=== PATIENT | female | born 1970 | race Hispanic/Latino ===

== ENCOUNTER 2020-01-31 17:09 | Emergency (ER) | payer SELFPAY ==
[~2020-01-31] VITALS: Ht 137.2 cm; Wt 85.3 kg
[2020-01-31] MEDS ORDERED: LIDOCAINE 1% W/EPINEPHRINE 20 ML VIAL INJ ONE (18:15)
[2020-01-31] MEDS ORDERED: LIDOCAINE 2%/ EPINEPHRINE 20ML MDV INJ ONE (18:15)
[2020-01-31 19:21] VITALS: BP 142/78
== END 2020-01-31 19:24 | disposition home or self-care (01) ==
LOC: ER 17:09
DX: L02.414 Cutaneous abscess of left upper limb (principal); L02.412 Cutaneous abscess of left axilla; E11.9 Type 2 diabetes mellitus without complications
CPT/HCPCS: 99283

== ENCOUNTER 2020-02-29 09:17 | Emergency (ER) | payer SELFPAY ==
[~2020-02-29] VITALS: Ht 137.2 cm; Wt 85.3 kg
--- NOTE | 2020-02-29 09:37 | Emergency Department Note ---
History of Present Illnes History of Present Illness Chief Complaint: General Medicine Complaints History of Present Illness This is a 49 year old female here for abscess to left chest wall around her bra line and another on the left abdominal wall. Pt here 01/31/20 for I&D of left axillary abscess, saw PCP 5 days ago - started on Bactrim. 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 Any updates have been documented here. Past Medical History Recent Fever: No Clinical Suspicion of Infectio: Yes New/Unexplained Change in Ment: No Past Medical History: Diabetes Past Surgical History: Social History Smoking Cessation: Never Smoker Counseling Performed: No Alcohol Use: Occasional Any Illegal Drug Use: No TB Exposure/Symptoms: No Physically hurt or threatened: No Family History Family history of heart diseas: No Other Last Tetanus: utd Any Pre-Existing Lines (PICC,: No Review of Systems Review of Systems Constitutional: no symptoms EENTM: no symptoms Cardiovascular: no symptoms Respiratory: no symptoms Gastrointestinal: no symptoms Genitourinary: no symptoms Musculoskeletal: no symptoms Neurological: no symptoms Psychological: no symptoms Endocrine: no symptoms Hematological/Lymphatic: no symptoms Review of other systems All other systems reviewed and negative. Physical Exam Related Data Allergies: Coded Allergies: No Known Allergies (Unverified , 01/31/20) Triage Vital Signs Vital Signs Date Time Temp Pulse Resp B/P (MAP) Pulse Ox O2 Delivery O2 Flow Rate FiO2 02/29/20 09:24 97.5 78 16 140/78 96 Physical Exam CONSTITUTIONAL Constitutional: well-developed, well-nourished, obese HENT HENT: normocephalic, atraumatic, oropharynx clear/moist, nose normal HENT L/R: left ext ear normal, right ext ear normal EYES Eyes: PERRL, conjunctivae normal NECK Neck: ROM normal PULMONARY Pulmonary: effort normal, breath sounds normal CARDIOVASCULAR Cardiovascular: regular rhythm, heart sounds normal, capillary refill normal, normal rate GASTROINTESTINAL Abdominal: soft, nontender, bowel sounds normal GENITOURINARY Genitourinary: exam deferred SKIN Skin: warm, dry, lesion (4x3 cm abscess in left axilla near lateral breast - mostly indurated but small area of fluctuance. On left abd wall she has 1 cm crusty indurated lesion without fluctuance), other MUSCULOSKELETAL Musculoskeletal: ROM normal NEUROLOGICAL Neurological: alert, oriented x 3, no gross motor or sensory deficits PSYCHOLOGICAL Psychological: mood/affect normal, judgement normal Procedures Procedures Procedure: Procedure - Incision & Drainage of abscess using sterile technique, left axillary/lateral breast abscess anesthetized with 2 cc of 1%Lidocaine without, area cleansed with Betadine then sterile water. Small incision made with #11 blade with small amount of purulent discharge. Non- stick dressing applied. No comlications Critical Care Time Subsequent provider I assumed direction of critical care for this patient from another provider of my specialty. Assessment & Plan Assessment & Plan Final Impression: (1) Cutaneous abscess Assessment & Plan DC home Continue full course of Bactrim, add Clindamycin 450 mg TID x 10 days Pt counseled on Blood glucose control, Diabetic diet, and importance of follow- up with PCP Depart Disposition: HOME, SELF-CARE Last Vital Signs Date Time Temp Pulse Resp B/P (MAP) Pulse Ox O2 Delivery O2 Flow Rate FiO2 02/29/20 09:24 97.5 78 16 140/78 96 ANTHONY LANDEROS MD February 29, 2020 09:37
[2020-02-29] MEDS ORDERED: LIDOCAINE HCL 1% LOCAL INJ 20 ML VIAL INJ ONE (09:45)
[2020-02-29] MEDS ORDERED: CLINDAMYCIN HC150 MG PO (09:57)
[2020-02-29] MEDS ORDERED: MUPIROCIN22 GM TOP (09:57)
== END 2020-02-29 10:28 | disposition home or self-care (01) ==
LOC: ER 09:17
DX: L02.213 Cutaneous abscess of chest wall (principal); E11.9 Type 2 diabetes mellitus without complications
CPT/HCPCS: 10060; 99283; J2001

== ENCOUNTER 2020-05-08 20:08 | Emergency (ER) | payer OTHER ==
[~2020-05-08] VITALS: Ht 137.2 cm; Wt 85.3 kg
[~2020-05-08 20:08] MED LIST: CLINDAMYCIN HC150 MG PO; MUPIROCIN22 GM TOP
[2020-05-08] MEDS ORDERED: KETOROLAC TROMETHAMINE 30 MG/ML VIAL IV STA (20:13)
[2020-05-08 20:31] LABS: BASOPHILS # (AUTO) 0.1 (0.0-0.1); BASOPHILS % 0.6 % (0.0-1.0); EOSINOPHILS # (AUTO) 0.2 (0.0-0.4); EOSINOPHILS % 1.9 % (0.0-6.0); HEMATOCRIT 37.8 % (34.2-44.1); HEMOGLOBIN 12.3 g/dL (12.0-16.0); LYMPHOCYTES # (AUTO) 2.5 (1.0-3.2); LYMPHOCYTES % 29.7 % (18.0-39.1); MEAN CORPUSCULAR HEMOGLOBIN 29.9 pg (28-32); MEAN CORPUSCULAR HGB CONC 32.5 g/dL (31-35); MONOCYTES # (AUTO) 0.4 (0.2-0.8); MONOCYTES % 5.3 % (4.4-11.3); NEUTROPHILS # (AUTO) 5.2 (2.1-6.9); NEUTROPHILS % 62.3 % (38.7-80.0); PLATELET COUNT 261 x10e3/uL (140-360); RED BLOOD COUNT 4.11 x10e6/uL (3.6-5.1); RED CELL DISTRIBUTION WIDTH 12.9 % (11.7-14.4)
--- NOTE | 2020-05-08 20:39 | Emergency Department Note ---
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 Arrival Mode: [facility] Onset (how long ago): hour(s) (1) Location: CHEST Quality: PAIN, HURTS TO TAKE A DEEP BREATH Radiation: Reports other (LEFT CHEST) Onset quality: sudden Duration (how long): hour(s) (1) Timing of current episode: constant Progression: unchanged Chronicity: new Context: Denies recent illness, Denies recent surgery, Denies trauma/injury Relieving factors: none Exacerbating factors: other (DEEP BREATH, MOVEMENT) Treatments prior to arrival: other (ASPIRIN 81 MG TIMES 3, NTG SL TIMES ONE) Past Medical/Family History Physician Review I have reviewed the patient's past medical and family history. Any updates have been documented here. Past Medical History Recent Fever: No Clinical Suspicion of Infectio: No New/Unexplained Change in Ment: No Past Medical History: Diabetes Past Surgical History: Social History Smoking Cessation: Never Smoker Counseling Performed: No Alcohol Use: None Any Illegal Drug Use: No Physically hurt or threatened: No Family History Family history of heart diseas: No Other family history HTN,DM Other Last Tetanus: utd Any Pre-Existing Lines (PICC,: No Review of Systems Review of Systems Constitutional: Reports no symptoms EENTM: Reports no symptoms Cardiovascular: Reports as per HPI Respiratory: Reports no symptoms Gastrointestinal: Reports no symptoms Genitourinary: Reports no symptoms Musculoskeletal: Reports no symptoms Integumentary: Reports no symptoms Neurological: Reports no symptoms Psychological: Reports no symptoms Endocrine: Reports no symptoms Hematological/Lymphatic: Reports no symptoms Physical Exam Related Data Allergies: Coded Allergies: No Known Allergies (Unverified , 01/31/20) Triage Vital Signs Vital Signs Date Time Temp Pulse Resp B/P (MAP) Pulse Ox O2 Delivery O2 Flow Rate FiO2 7/28/20 20:18 98.2 85 20 130/67 97 Room Air Vital signs reviewed: Yes Physical Exam CONSTITUTIONAL Constitutional: Present well-developed, Present well-nourished; Absent distressed HENT HENT: Present normocephalic, Present atraumatic, Present oropharynx clear/moist, Present nose normal HENT L/R: Present left ext ear normal, Present right ext ear normal EYES Eyes: Reports PERRL, Reports conjunctivae normal NECK Neck: Present ROM normal PULMONARY Pulmonary: Present effort normal, Present breath sounds normal, Present chest tenderness (WITH PALPATION OF STERNUM, REPRODUCES PT'S CHEST PAIN) CARDIOVASCULAR Cardiovascular: Present regular rhythm, Present heart sounds normal, Present capillary refill normal, Present normal rate GASTROINTESTINAL Abdominal: Present soft, Present nontender, Present bowel sounds normal GENITOURINARY Genitourinary: Present exam deferred SKIN Skin: Present warm, Present dry MUSCULOSKELETAL Musculoskeletal: Present ROM normal NEUROLOGICAL Neurological: Present alert, Present oriented x 3, Present no gross motor or sensory deficits PSYCHOLOGICAL Psychological: Present mood/affect normal, Present judgement normal Results Laboratory Laboratory Laboratory Tests Test 05/08/20 23:10 05/08/20 22:50 05/08/20 20:17 Bedside Glucose 306 mg/dL (70-120) Creatine Kinase 49 IU/L (29-168) 62 IU/L (29-168) Creatine Kinase MB 1.50 ng/mL (0-5.0) 1.70 ng/mL (0-5.0) Troponin I < 0.001 ng/mL (0-0.300) < 0.001 ng/mL (0-0.300) White Blood Count 8.38 x10e3/uL (4.8-10.8) Red Blood Count 4.11 x10e6/uL (3.6-5.1) Hemoglobin 12.3 g/dL (12.0-16.0) Hematocrit 37.8 % (34.2-44.1) Mean Corpuscular Volume 92.0 fL (81-99) Mean Corpuscular Hemoglobin 29.9 pg (28-32) Mean Corpuscular Hemoglobin Concent 32.5 g/dL (31-35) Red Cell Distribution Width 12.9 % (11.7-14.4) Platelet Count 261 x10e3/uL (140-360) Neutrophils (%) (Auto) 62.3 % (38.7-80.0) Lymphocytes (%) (Auto) 29.7 % (18.0-39.1) Monocytes (%) (Auto) 5.3 % (4.4-11.3) Eosinophils (%) (Auto) 1.9 % (0.0-6.0) Basophils (%) (Auto) 0.6 % (0.0-1.0) Neutrophils # (Auto) 5.2 (2.1-6.9) Lymphocytes # (Auto) 2.5 (1.0-3.2) Monocytes # (Auto) 0.4 (0.2-0.8) Eosinophils # (Auto) 0.2 (0.0-0.4) Basophils # (Auto) 0.1 (0.0-0.1) Absolute Immature Granulocyte (auto 0.02 x10e3/uL (0-0.1) D-Dimer Quantitative (PE/DVT) 0.29 ug/mLFEU (0.00-0.45) Sodium Level 139 mmol/L (136-145) Potassium Level 3.9 mmol/L (3.5-5.1) Chloride Level 103 mmol/L (98-107) Carbon Dioxide Level 25 mmol/L (22-29) Anion Gap 14.9 mmol/L (8-16) Blood Urea Nitrogen 16 mg/dL (7-26) Creatinine 0.98 mg/dL (0.57-1.11) Estimat Glomerular Filtration Rate 60 ML/MIN (60-) BUN/Creatinine Ratio 16 (6-25) Glucose Level 397 mg/dL (74-118) Calcium Level 9.4 mg/dL (8.4-10.2) Total Bilirubin 0.2 mg/dL (0.2-1.2) Aspartate Amino Transf (AST/SGOT) 18 IU/L (5-34) Alanine Aminotransferase (ALT/SGPT) 20 IU/L (0-55) Alkaline Phosphatase 93 IU/L (40-150) Total Protein 7.4 g/dL (6.5-8.1) Albumin 3.2 g/dL (3.5-5.0) Globulin 4.2 g/dL (2.3-3.5) Albumin/Globulin Ratio 0.8 (0.8-2.0) Laboratory Tests Test 05/08/20 20:17 Lab results reviewed: Yes Imaging Imaging results reviewed: Yes Impressions Procedure: [id number] DX/CHEST SINGLE (PORTABLE) Exam Date: 05/08/20 Exam Time: 2101 REPORT STATUS: Signed EXAMINATION: CHEST SINGLE (PORTABLE) INDICATION: Chest pain COMPARISON: None FINDINGS: TUBES and LINES: None. LUNGS: Low lung volumes. Lungs are clear. No consolidations. PLEURA: No pleural effusion or pneumothorax. HEART AND MEDIASTINUM: The cardiomediastinal silhouette is unremarkable. BONES AND SOFT TISSUES: No acute osseous lesion. Soft tissues are unremarkable. Healed right lateral clavicular fracture. Healed right rib fractures. Degenerative changes. UPPER ABDOMEN: No free air under the diaphragm. IMPRESSION: No acute thoracic radiographic abnormality although lung evaluation is limited due to low lung volumes, suboptimal portable AP technique, and patient body habitus.. Signed by: Dennis Jackson DO on 05/08/2020 10:10 PM Dictated By: DENNIS JACKSON DO 09 Transcribed By: JUAN LUIS on 05/08/202209 COPY TO: EVAN TOLBERT MD~ Procedures 12 Lead ECG Interpretation ECG Interpretation : ECG: ECG 1 Campaign Associate: Interpreted by ED physician Date: May 08, 2020 Time: 20:10 Rhythm: sinus rhythm Rate: normal BPM: 83 QRS axis: normal ST segments normal: Yes T waves normal: Yes Other findings: no other findings Clinical Impression: normal ECG Clinical Decision Tools HEART Score List risk factors DIABETES HEART Score: HEART Score Response (Comments) Value History Slightly suspicious 0 EKG Normal 0 Age 45 - 65 1 Risk factors 1 or 2 risk factors 1 Troponin 1-3x normal limit Total 2 Assessment & Plan Medical Decision Making MDM PT WITH CHEST PAIN THAT IS REPRODUCIBLE ON EXAM CBC, CMP, EKG, CARDIAC ENZYMES, D-DIMER, CXR ORDERED TO EVAL FOR MYOCARDIAL INFARCTION, ELECTROLYTE ABNORMALITY, PNEUMONIA, PNEUMOTHORAX, MYOCARDIAL INFARCTION TORADOL 30 MG IV ORDERED PT WITH NEGATIVE CARDIAC ENZYMES TIMES 2, PAIN IS REPRODUCIBLE AND HEART SCORE IS 2, WILL D/C PT HOME PRESCRIPTIONS NAPROXEN 500 MG PO BID #14, TRAMADOL 50MG 1 PO Q 6 HOURS PRN PAIN, #15 Reassessment Reassessment time: 23:27 Reassessment PT'S CHEST PAIN IMPROVED AFTER TORADOL 30 MG IV Assessment & Plan Final Impression: (1) Costochondritis (2) Chest wall pain Depart Disposition: HOME, SELF-CARE Last Vital Signs Date Time Temp Pulse Resp B/P (MAP) Pulse Ox O2 Delivery O2 Flow Rate FiO2 05/08/20 20:30 72 20 150/84 100 Room Air 05/08/20 20:18 98.2 Home Meds Active Scripts Mupirocin (MUPIROCIN) 22 Gm Oint...g., 22 GM TOP TID, #1 TUBE Prov:ANTHONY LANDEROS MD 02/29/20 Clindamycin Hcl (CLINDAMYCIN HCL) 150 Mg Capsule, 3 CAP PO TID for 10 Days, #90 Prov:ANTHONY LANDEROS MD 02/29/20 Medications in the ED Ketorolac Tromethamine 30 mg ONCE STAT IV Last administered on 05/08/20at 20:29; Admin Dose 30 MG; Start 05/08/20 at 20:13; Stop 05/08/20 at 20:14; Status UNV EVAN TOLBERT MD May 08, 2020 20:39
[2020-05-08 20:51] LABS: ALANINE AMINOTRANSFERASE 20 IU/L (0-55); ALBUMIN 3.2 g/dL (3.5-5.0); ALBUMIN/GLOBULIN RATIO 0.8 (0.8-2.0); ALKALINE PHOSPHATASE 93 IU/L (40-150); ANION GAP 14.9 mmol/L (8-16); BLOOD UREA NITROGEN 16 mg/dL (7-26); BUN/CREATININE RATIO 16 (6-25); CALCIUM 9.4 mg/dL (8.4-10.2); CARBON DIOXIDE 25 mmol/L (22-29); CHLORIDE 103 mmol/L (98-107); CREATINE KINASE 62 IU/L (29-168); CREATININE, SERUM 0.98 mg/dL (0.57-1.11); EST GLOMERULAR FILTRATION RATE 60 ML/MIN (60-); GLUCOSE 397 mg/dL (74-118); POTASSIUM 3.9 mmol/L (3.5-5.1); SODIUM 139 mmol/L (136-145)
[2020-05-08] MEDS ORDERED: INSULIN REGULAR, HUMAN 100 UNIT/1 ML 3ML VIAL SQ ONE (21:45)
--- NOTE | 2020-05-08 22:13 | Diagnostic Imaging Report ---
EXAMINATION: CHEST SINGLE (PORTABLE) INDICATION: Chest pain COMPARISON: None FINDINGS: TUBES and LINES: None. LUNGS: Low lung volumes. Lungs are clear. No consolidations. PLEURA: No pleural effusion or pneumothorax. HEART AND MEDIASTINUM: The cardiomediastinal silhouette is unremarkable. BONES AND SOFT TISSUES: No acute osseous lesion. Soft tissues are unremarkable. Healed right lateral clavicular fracture. Healed right rib fractures. Degenerative changes. UPPER ABDOMEN: No free air under the diaphragm. IMPRESSION: No acute thoracic radiographic abnormality although lung evaluation is limited due to low lung volumes, suboptimal portable AP technique, and patient body habitus.. Signed by: Dennis Jackson DO on 05/08/2020 10:10 PM
[2020-05-08 23:10] LABS: CREATINE KINASE 49 IU/L (29-168)
[2020-05-08 23:36] VITALS: BP 114/74
--- OUTSIDE RECORDS SUMMARY | 2020-05-11 19:19 | XMS REPORT | Clinical Summary ---
Author Author [facility] Organization [facility] Address Unknown Phone Unavailable Care Team Providers Care Commissioner Of Officials Name Role Phone Charissa Gramajo Resident PCP Allergies No Known Allergies Medications End Date Status Medication Sig Dispensed Refills Start Date Active Insulin Syringe-Needle Use as 2 Box 5 U-100 1/2 mL directed. 1 syringeIndications: Type II or unspecified type diabetes mellitus with renal manifestations, uncontrolled(250.42) Active ibuprofen (MOTRIN) 600 mg Take 1 tablet 30 tablet 0 tabletIndications: by mouth 7 Tension headache every 8 hours as needed for Pain. Active cyclobenzaprine Take 1 tablet 30 tablet 0 07/11/20 1 (FLEXERIL) 10 mg by mouth 7 tabletIndications: nightly at Tension headache bedtime as needed for Muscle Spasms. Active dexlansoprazole Take 1 30 capsule 2 (DEXILANT) 30 mg delayed capsule by 7 release capsule mouth daily. Active metFORMIN (GLUCOPHAGE XR) Take 1 tablet 60 tablet 1 500 mg ER extended by mouth 2 9 release times daily. tabletIndications: Type II or unspecified type diabetes mellitus with neurological manifestations, uncontrolled(250.62) Active exenatide (BYETTA) 5 Inject 5 mcg 2.4 mL 1 mcg/dose (250 mcg/mL) 1.2 under the 9 mL injectionIndications: skin 2 times Type II or unspecified daily (with type diabetes mellitus meals). with neurological manifestations, uncontrolled(250.62) Active atorvastatin (LIPITOR) 40 Take 1 tablet 90 tablet 1 mg tabletIndications: by mouth at 9 Mixed hyperlipidemia bedtime nightly. Active Problems Problem Noted Date Full incontinence of feces 03/15/2019 Well woman exam 03/11/2019 Breast cancer screening 03/11/2019 Herpes simplex vulvovaginitis 03/11/2019 Vaginal itching 03/11/2019 Screening for STD (sexually transmitted disease) RUQ pain 07/22/2017 Intercostal pain 06/24/2017 Diabetes 05/31/2014 Type II or unspecified type diabetes mellitus without mention of 05/15/2010 complication, uncontrolled Pain in joint, lower leg 05/15/2010 Lumbago 05/15/2010 Type II or unspecified type diabetes mellitus with ne urological 05/15/2010 manifestations, uncontrolled(250.62) Diabetes mellitus 03/25/2008 Morbid obesity 03/25/2008 Dizziness and giddiness 03/25/2008 Headache(784.0) 03/25/2008 Encounters Care Team Description Date Type Specialty 09/14/2019 Emergency Emergency Medicine Rajiv Treviño MD Abnormal laboratory test result-none fou nd (Primary Dx); Hyperglycemia; Chronic pain of left ankle 05/31/2019 Emergency Emergency Medicine after 05/08/2019 Family History Medical History Relation Name Comments Seizures Daughter Arthritis Father Heart Maternal Grandmother Stroke Maternal Grandmother Arthritis Mother Diabetes Mother Hypertension Mother Heart Paternal Grandmother Relation Name Status Comments Brother Alive Daughter Alive Daughter Alive Daughter Alive Daughter Father Alive Maternal Grandfather Maternal Grandmother Mother Alive Paternal Grandfather Paternal Grandmother Sister Alive Social History Date Tobacco Use Types Packs/Day Years Used Never Smoker Smokeless Tobacco: Never Used Drinks/Week oz/Week Comments Alcohol Use No Food Insecurity Answer Date Recorded Within the past 12 months, you worried that your Never karthikeyan e 08/18/2017 food would run out before you got money to buy more. Within the past 12 months, the food you bought Never true 08/18/2017 just didn't last and you didn't have mo latesha to get more. Sex Assigned at Date Recorded Not on file Industry Job Start Date Occupation Not on file Not on file Not on file Travel End Travel History Travel Start No recent travel history available. Last Filed Vital Signs Reading Time Taken Comments Vital Sign 146/78 09/14/2019 1:41 PM [employer] Blood Pressure 75 09/14/2019 1:41 PM [employer] Pulse 36.6 C (97.9 F) 09/14/2019 1:41 PM [employer]ATE [employer]IVIL [employer]ER Temperature 18 09/14/2019 1:41 PM [employer]ATE [employer]IVIL ENGINEER Respiratory Rate 99% 09/14/2019 1:41 PM ASSOCIATE CIVIL ENGINEER Oxygen Saturation - - Inhaled Oxygen Concentration 88 kg (194 lb) 09/14/2019 1:43 PM [employer]ATE [employer]IVIL ENGINEER Weight - - Height 45.09 03/18/2019 3:15 PM CDT Body Mass Index Plan of Treatment Health Maintenance Due Date Last Done Comments DM Retinal Exam (Yearly) 1987 Breast Cancer Scrn 05/22/2011 05/22/2010, (Yearly) 05/15/2010, 12/28/2002 Colorectal Cancer Scrn 2019 Annual (FIT/FOBT) Age 50 to 75 DM HGBA1C (Yearly) 03/11/2020 03/11/2019, 08/18/2017, 04/10/2011, Additional history exists DM Microalbumin Urine 03/11/2020 03/11/2019, Scrn (Yearly) 04/10/2011, 04/10/2011, Additional history exists DM Foot Exam (Yearly) 03/18/2020 03/18/2019, 07/11/2017 IMM Influenza Seasonal 07/12/2020Jul to December (>/= 19 yrs) Cervical Cancer Scrn (3 09/15/2020 09/15/2017 Yrs) Goals Goal Patient Associated Recent Progress Patient-Stat Aut hor Goal Type Problems ed? Have 3 meals a day Diet Estefania Arriaga RN Decrease soda or juice intake Diet Estefania Arriaga RN Exercise 3x per week (15 min Exercise No Amanda west, per time) Estefania Desir RN Home Glucose Monitoring Self No Brooks lebron, management Estefania Desir RN Procedures Comments Procedure Name Priority Date/Time Associated Diag nosis [facility] EKG PROC 12 LEAD Routine 09/14/2019 EKG; TRACING ONLY 1:50 PM [employer]OC[employer]ATE [employer]IVIL ENGINEER GLUCOSE POC Routine 09/14/2019 1:46 PM ASSOCIATE [employer]IVIL ENGINEER BMP POC Routine 05/31/2019 9:23 PM CDT BMP POC Routine 05/31/2019 6:11 PM CDT CBC STAT 05/31/2019 6:04 PM CDT PT/INR/PTT STAT 05/31/2019 6:04 PM CDT CBC/DIFF STAT 05/31/2019 6:04 PM CDT XRAY ANKLE 3 VIEW MIN STAT 05/31/2019 5:57 PM CDT after 05/08/2019 Results * 12 LEAD EKG (09/14/2019 1:50 PM ASSOCIATE CIVIL ENGINEER) Pathologist [facility] Date: 2019-09-14 Pat Name: SLIME MUJICA Department: [id number] Room: Gender: F Social Insurance Adviser: : 1970 Requested By: FERN Mi Order Number: [id number] Reading MD: James DICKINSON Measurements Intervals [place] Rate: 75 P: 49 [place]: 164 QRS: 6 QRSD: 91 T: 31 QT: 381 QTc: 426 Interpretive Statements SINUS RHYTHM LOW QRS VOLTAGE IN PRECORDIAL LEADS NONSPECIFIC T-WAVE ABNORMALITY Abnormal ECG Electronically Signed On 09-14-2019 14:29:15 ASSOCIATE CIVIL ENGINEER by James DICKINSON Specimen Performing Organization Address [facility] SMS * POCT GLUCOSE POC docked device (09/14/2019 1:46 PM ASSOCIATE CIVIL ENGINEER) [facility] Glucose POC 320 (H) 74 - 106 mg/dL [facility] Specimen Blood Performing Organization Address [facility] one Number [facility] [address] [place] [id number] * POCT BMP POC docked device (05/31/2019 9:23 PM CDT) Only the most recent of 2 results within the time period is included. Pathologist [facility] Sodium POC 132 (L) 136 - 145 mmol/L [facility] Potassium POC 4.8 3.5 - 5.1 mmol/L [facility] Chloride POC 98 98 - 107 mmol/L [facility] TCO2 POC 28 21 - 32 mmol/L [facility] Urea Nitrogen 25 (H) 7 - 18 mg/dL [facility] POC Creatinine POC 1.2 0.6 - 1.3 mg/dL [facility] Glucose POC 335 (H) 74 - 106 mg/dL [facility] Ionized Calcium 1.17 1.15 - 1.29 mmol/L [facility] POC GFR, Estimated 53 (L) >=90 mL/min/1.73 m2 [facility] Hemoglobin POC 14.6 12 - 16 g/dL [facility] Hematocrit POC 43.0 37.0 - 47.0 % [facility] Specimen Blood, venous Performing Organization Address City/State/Zipcode Ph one Number [facility] [address] [place] [address] * CBC/Diff (05/31/2019 6:04 PM CDT) WBC 9.1 4.5 - 11.0 K/uL [facility] RBC 4.23 4.20 - 5.40 M/uL [facility] Hemoglobin 12.6 12.0 - 16.0 g/dL [facility] Hematocrit 39.5 37.0 - 47.0 % [facility] MCV 93.4 (H) 82.0 - 92.0 fL [facility] MCH 29.8 27.0 - 32.0 pg [facility] MCHC 31.9 (L) 32.0 - 36.0 g/dL [facility] RDW 42.4 36.4 - 46.3 fL [facility] Platelet 277 150 - 400 K/uL [facility] Mean Platelet 9.5 9.4 - 12.4 fL [facility] Volume Percent NRBC 0.0 % [facility] Neutrophil 68.8 34.0 - 70.0 % [facility] Lymphs 23.3 20.0 - 50.0 % [facility] Monocytes 4.8 (L) 5.0 - 12.0 % [facility] Eos 2.1 0.7 - 5.0 % [facility] Basos 0.5 0.1 - 1.2 % [facility] Immature 0.5 0.0 - 0.5 % [facility] Granulocytes Neutrophils 6.26 (H) 1.56 - 6.13 K/uL [facility] (Absolute) Lymphs 2.12 1.18 - 3.74 K/uL [facility] (Absolute) Monocytes(Absol 0.44 (H) 0.24 - 0.36 K/uL [facility] diann) Eos (Absolute) 0.19 0.04 - 0.36 K/uL [facility] Baso (Absolute) 0.05 0.01 - 0.08 K/uL [facility] Immature Grans 0.05 (H) 0.00 - 0.03 K/uL [facility] (Abs) Absolute NRBC 0.00 K/uL [facility] Specimen Blood Performing Organization Address [facility] one Number [facility] [address] [place] [address] * PT/INR/PTT (05/31/2019 6:04 PM CDT) PT 12.2 11.8 - 15.0 Seconds [facility] INR 0.9 Refer to INR [facility] Comment: therapeutic ranges 2.0 - 3.0 for moderate intensity anticoagulation 2.5 - 3.5 for high intensity anticoagulation PTT 27.2 23.6 - 36.4 Seconds [facility] Comment: The recommended therapuetic range is an APTT 61-103 seconds which corresponds to 0.3-0.7 anti Xa u/ml. Specimen Blood Performing Organization Address [facility] one Number [facility] [address] [place] [address] * XRAY ANKLE 3 VIEW MIN (05/31/2019 5:57 PM CDT) Specimen Impressions Performed At IMPRESSION: SMS 1. Diffuse soft tissue swelling of th e ankle without underlying acute osseous abnormality 2. Diffuse osteopenia 3. Calcaneal enthesophytes and mild i ntertarsal degenerative changes Signed By: George Berry MD, 019 6:17 PM Narrative Performed At EXAM: XR LEFT ANKLE 3 VIEWS [facility] DATE: 05/31/2019 5:57 PM INDICATION: L ankle pain COMPARISON: None available TECHNIQUE: AP, lateral and oblique an kle radiographs FINDINGS: Diffuse osteopenia. No acute fracture or malalignment is identified. The ankle mortise is congruent. Diffuse ankle soft tissue swelling is present. Note made o f calcaneal enthesophytes and mild intertarsal degenerative changes. Procedure Note Interface, Rad/Mammog In - 05/31/2019 6:22 PM CDT EXAM: XR LEFT ANKLE 3 VIEWS DATE: 05/31/2019 5:57 PM INDICATION: L ankle pain COMPARISON: None available TECHNIQUE: AP, lateral and oblique ankle radiographs FINDINGS: Diffuse osteopenia. No acute fracture or malalignment is identified. The ankle mortise is congruent. Diffuse ankle soft tissue swelling is present. Note made of calcaneal enthesophytes and mild intertarsal degenerative changes. IMPRESSION IMPRESSION: 1. Diffuse soft tissue swelling of the ankle without underlying acute osseous abnormality 2. Diffuse osteopenia 3. Calcaneal enthesophytes and mild int ertarsal degenerative changes Signed By: George Berry MD, 05/31/2019 6:17 PM Performing Organization Address City/State/Zipcode Ph one Number SMS after 05/08/2019 Insurance Type Payer Benefit Subscriber ID Effective Phone Address Plan / Dates Group [facility] SELF-PAY SELF-PAY xxxxx [phone] [place] [address] Advance Directives Patient Security Associate Explanation Type Date Recorded Advance Directives 09/14/2019 8:32 PM and Living Will
--- OUTSIDE RECORDS SUMMARY | 2020-05-11 19:20 | XMS REPORT | Summary of Care ---
Author Author SLIME VINSON M.D. Organization Unknown Address Unknown Phone Unavailable Care Team Providers Care Alarm Signaler Name Role Phone EVAN VINSON M.D. Unavailable Unavailable Functional Status Name Dates Details Functional status health issues are not documented Status: Name Dates Details Cognitive status health issues are not d ocumented Status: Problems Name Dates Details Pain in pelvis (R10.2) Status: Active Pelvic fracture (808.8, S32.9XXA) Status: Active Type II diabetes mellitus (250.00, E11.9 ) Status: Active Medications Name Dates Details MetFORMIN HCl TABS Active HumuLIN R 100 UNIT/ML Injection Solution sliding scale * Refills: 0 Active 3 ML Vial Allergies and Adverse Reactions Name Dates Details No Known Drug Allergies (Allergy) Status : Active Past Medical History Name Dates Details History of Abscess of left thigh (682.6, L02.416) Status: Resolved History of back pain (V13.59, Z87.39) Status: Resolved History of diabetes mellitus (V12.29, Z8 6.39) Status: Resolved History of 4 Status: Resolved History of pulmonary embolism (V12.55, Z 86.711) Status: Resolved Parity 3 (V61.5, Z87.898) Status: Resolved Procedures Procedure Dates Details History of Inferior vena cava filter placement Completed History of Uterine artery embolization C ompleted History of Incision & drainage Completed 08-Jun-2018 History of section Completed History of Pelvic surgery Completed Immunization Name Dates Details Immunizations not documented Family History Name Dates Details Family history of Heart trouble (429.9, I51.9) Comments: Family History Status: Active Family history of hypertension (V17.49, Z82.49) Comments: Family History Status: Active Family history of arthritis (V17.7, Z82. 61) Comments: Family History Status: Active Family history of malignant neoplasm (V1 6.9, Z80.9) Comments: Family History Status: Active Family history of cerebrovascular accide nt (CVA) (V17.1, Z82.3) Comments: Family History Status: Active Family history of diabetes mellitus (V18 .0, Z83.3) Comments: Family History Status: Active Name Dates Details Family history of diabetes mellitus (V18 .0, Z83.3) Status: Active Social History Name Dates Details - Status: Name Dates Details Never smoker Vital Signs Date Test Result Details [id number] BP Systolic 133 mm[Hg] Status: Comments: Lo cation: RUE; Position: Sitting BP Diastolic 85 mm[Hg] Status: Comments: Lo cation: RUE; Position: Sitting Height 53 in Status: Temperature 97.5 f Status: Comments: Me thod: Oral Heart Rate 115 /min Status: [id number] BP Systolic 102 mm[Hg] Status: Comments: Lo cation: LUE; Position: Sitting BP Diastolic 68 mm[Hg] Status: Comments: Lo cation: LUE; Position: Sitting Height 53 in Status: Temperature 97.7 f Status: Comments: Me thod: Oral Heart Rate 86 /min Status: Weight 165 lb Status: Body Mass Index Calculated 41.3 kg/m2 Status: Body Surface Area Calculated 1.57 m2 Status: [id number]:03 BP Systolic 113 mm[Hg] Status: Comments: Lo cation: RUE; Position: Sitting BP Diastolic 77 mm[Hg] Status: Comments: Lo cation: RUE; Position: Sitting Height 53 in Status: Temperature 96.3 f Status: Comments: Me thod: Oral Heart Rate 85 /min Status: Weight 165 lb Status: Body Mass Index Calculated 41.3 kg/m2 Status: Body Surface Area Calculated 1.57 m2 Status: Results Date Description Value Details [id number] Tobacco Use Screening Completed DONE Plan of Care Name Dates Details Planned Observations Planned Goals not documented Interventions Provided Plan* Again, it appears like the fluid collections are gone and the drains can be removed. We discussed leaving them longer, removing one each of the next two weeks, and removing both today. She prefers to have both removed now. She is aware of the possibility of fluid recurrence. I removed the drains. RTC prn Instructions Name Dates Details Instructions not documented Encounters Appointment; SUHAIL SANDERSON M.D. Encounter Diagnosis: Problem not documented On: 17-Dec-2017 10:45 Appointment; SUHAIL SANDERSON M.D. Encounter Diagnosis: Problem not documented On: 28-Jan-2018 13:45 Appointment; SUHAIL SANDERSON M.D. Encounter Diagnosis: Problem not documented On: 11-Feb-2018 13:45 Appointment; SUHAIL SANDERSON M.D. Encounter Diagnosis: Problem not documented On: 11-Mar-2018 13:45 Appointment; EVAN VINSON M.D. Encounter Diagnosis: Problem not documented On: 16-Jun-2018 13:30 Appointment; EVAN VINSON M.D. Encounter Diagnosis: Problem not documented On: 25-Jun-2018 11:30 Appointment; EVAN VINSON M.D. Encounter Diagnosis: Problem not documented On: 07-Jul-2018 10:15
--- OUTSIDE RECORDS SUMMARY | 2020-05-11 19:20 | XMS REPORT | Continuity of Care Document ---
Author Author [facility] t Organization [facility] t Address [address] [place] [address] Phone Unavailable Care Team Providers [employer] Specialist Name Role Phone NONSTAFF PCP Unavailable Domingo TOLBERT Attphys Unavailable Salena Treviño MD Attphys EVAN VINSON M.D. Attphys Unavailable SUHAIL SANDERSON M.D. Attphys Unavailable Payers Payer Name Policy Type Policy Number Effective Date Expiration Date S daniel Hopkinsa o [id number] [facility] [id number] [place] [address] xxxxx 2018 00:00:00 2028 2 3:59:59 [facility] Problems Condition Name Condition Details Condition Category Status Onset Date Resolution Date Last Treatment Date Treating Clinician Comments Source Full incontinence of feces Full incontinence of feces Disease Active 2019-03-15 00:00:00 [facility] Herpes simplex vulvovaginitis Herpes simplex vulvovaginitis Disease Active 2019-03-11 00:00:00 [place] easaloni Vaginal itching Vaginal itching Disease Active 2019-03-11 00:00:00 [facility] Screening for STD (sexually transmitted disease) Scree miko for STD (sexually transmitted disease) Disease Active 2019-03-11 00:00:00 [facility] RUQ pain RUQ pain Disease Active 2017-07-22 00:00:00 [facility] Intercostal pain Intercostal pain Disease Active 2017-06-24 00:00:00 [facility] Diabetes Diabetes Disease Active 2014-05-31 00:00:00 [facility] Type II or unspecified type diabetes kadi litus without mention of complication, uncontrolled Type II or unspecified type diabetes kadi litus without mention of complication, uncontrolled Disease Active 2010-05-15 00:00:00 [facility] Pain in joint, lower leg Pain in joint, lower leg Disease Acti ve 2010-05-15 00:00:00 [facility] Lumbago Lumbago Disease Active 2010-05-15 00:00:00 [facility] 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, 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, uncontrolled(250.62) Disease Active 2010-05-15 00:00:00 [facility] Diabetes mellitus Diabetes mellitus Disease Active 2008-03-25 00:00:00 [facility] Morbid obesity Morbid obesity Disease Active 2008-03-25 00:00:00 [facility] Dizziness and giddiness Dizziness and giddiness Disease Active 2008-03-25 00:00:00 [facility] Headache(784.0) Headache(784.0) Disease Active 2008-03-25 00:00:00 [facility] History of back pain History of back pain Problem HL7.CCDAR2 Resolved [facility] History of diabetes mellitus History of diabetes mellitus Proble m HL7.CCDAR2 Resolved [facility] History of pulmonary embolism History of pulmonary embolism Prob manny HL7.CCDAR2 Resolved [facility] Pain in pelvis Pain in pelvis Problem HL7.CCDAR2 Active [facility] Pelvic fracture Pelvic fracture Problem HL7.CCDAR2 Active [facility] History of 4 History of 4 Problem HL7.CCDAR2 Resolved [facility] Parity 3 Parity 3 Problem HL7.CCDAR2 Resolved [facility] History of Abscess of left thigh History of Abscess of left thigh Problem HL7.CCDAR2 Resolved [facility] Abscess of skin Problem Active [facility] Costochondritis Problem Active [facility] Chest wall pain Problem Active [facility] Allergies, Adverse Reactions, Alerts This patient has no known allergies or adverse reactions. Family History Family Member Diagnosis Comments Start Date Stop Date Source Unknown Family Member Family history of diabetes mellitus Family Hist ory [facility] Unknown Family Member Family history of Heart trouble Family History [facility] Unknown Family Member Family history of hypertension Family History [facility] Unknown Family Member Family history of arthritis Family History [facility] Unknown Family Member Family history of malignant neoplasm Family His tory [facility] Unknown Family Member Family history of cerebrovascular acci dent (CVA) Family History [facility] Mother Family history of diabetes mellitus [facility] Natural daughter Seizures [facility] Natural father Arthritis [facility] Maternal grandmother Heart [facility] Maternal grandmother Stroke [facility] Natural mother Arthritis [facility] Natural mother Diabetes [facility] Natural mother Hypertension [facility] Paternal grandmother Heart [facility] Social History Social Habit Start Date Stop Date Quantity Comments Source Sex Assigned [facility] Alcohol intake 2019-05-31 00:00:00 2019-05-31 00:00:00 Current non-drinker of alcohol (finding) [facility] Food Worry 2017-08-18 00:00:00 2017-08-18 00:00:00 1 [facility] Food Scarcity 2017-08-18 00:00:00 2017-08-18 00:00:00 1 [facility] Smoking Status Start Date Stop Date Source Never smoker [facility] Medications Ordered Medication Name Filled Medication Name Start Date Stop Da te Current Medication? Ordering Clinician Indication Dosage Frequency Signature (SIG) Comments Components Source Clindamycin Hcl Clindamycin Hcl 2020-02-29 09:57:00 Yes 3 Three Times A Day [facility] Mupirocin Mupirocin 2020-02-29 09:57:00 Yes 22 Three Times A Day [facility] metFORMIN (GLUCOPHAGE XR) 500 mg ER extended release tablet 2019-03-18 00:00:00 Yes Type II or unspe cified type diabetes mellitus with neurological manifestations, uncontrolled(250.62) 500mg Q.5D Mervin e 1 tablet by mouth 2 times daily. [facility] exenatide (BYETTA) 5 mcg/dose (250 mcg/mL) 1.2 mL injection 2019-03-18 00:00:00 Yes Type II or unspe cified type diabetes mellitus with neurological manifestations, uncontrolled(250.62) 5ug Inj ect 5 mcg under the skin 2 times daily (with meals). [facility] atorvastatin (LIPITOR) 40 mg tablet 2019-03-18 00:00:00 Yes Mixed hyperlipidemia 40mg Take 1 tablet by mouth at bedtime nightly. [facility] dexlansoprazole (DEXILANT) 30 mg delayed release capsule 2017-08-18 00:00:00 Yes 30mg QD Take 1 capsule by mouth daily. [facility] ibuprofen (MOTRIN) 600 mg tablet 2017-07-11 00:00:00 Yes Tension headache 600mg Take 1 tablet by mouth every 8 hours as needed for Chris n. [facility] cyclobenzaprine (FLEXERIL) 10 mg tablet 2017-07-11 00:00:00 Yes Tension headache 10mg Take 1 tablet by talia th nightly at bedtime as needed for Muscle Spasms. [facility] Insulin Syringe-Needle U-100 1/2 mL syringe 2011-04-10 00:00 :00 Yes Type II or unspecified type diabetes mellitus with renal manifestations, uncontrolled(250.42) Use as directed. [facility] MetFORMIN HCl TABS MetFORMIN HCl TABS Yes [facility] HumuLIN R 100 UNIT/ML Injection Solution HumuLIN R 100 UNIT/ML Injection Solution Yes sliding scale [facility] Vital Signs Vital Name Observation Time Observation Value Comments Source Weight 2020-05-08 20:18:00 188 [lb_av] [facility] BMI (Body Mass Index) 2020-05-08 20:18:00 45.3 kg/m2 [facility] Weight 2020-02-29 09:24:00 188 [lb_av] [facility] BMI (Body Mass Index) 2020-02-29 09:24:00 45.3 kg/m2 [facility] Body weight 2019-09-14 13:43:00 87.998 kg [facility] BMI 2019-09-14 13:43:00 45.09 kg/m2 [facility] Systolic blood pressure 2019-09-14 13:41:00 146 mm[Hg] [facility] Diastolic blood pressure 2019-09-14 13:41:00 78 mm[Hg] [facility] Heart rate 2019-09-14 13:41:00 75 /min [facility] Body temperature 2019-09-14 13:41:00 36.61 [facility] Respiratory rate 2019-09-14 13:41:00 18 /min [facility] Oxygen saturation in Arterial blood by Pulse oximetry 2018-10 13:41:00 99 /min [facility] BP Systolic 2018-07-07 10:31:00 133 mm[Hg] Location: RUE; Positi on: Sitting [facility] BP Diastolic 2018-07-07 10:31:00 85 mm[Hg] Location: RUE; Positi on: Sitting [facility] Height 2018-07-07 10:31:00 53 [in_us] [facility] Temperature 2018-07-07 10:31:00 97.5 [degF] [facility] Heart Rate 2018-07-07 10:31:00 115 /min [facility] BP Systolic 2018-06-25 14:45:00 102 mm[Hg] Location: LUE; Positi on: Sitting [facility] BP Diastolic 2018-06-25 14:45:00 68 mm[Hg] Location: LUE; Positi on: Sitting [facility] Height 2018-06-25 14:45:00 53 [in_us] [facility] Weight 2018-06-25 14:45:00 165 [lb_av] [facility] Body Mass Index Calculated 2018-06-25 14:45:00 41.3 kg/m2 [facility] Temperature 2018-06-25 14:45:00 97.7 [degF] [facility] Heart Rate 2018-06-25 14:45:00 86 /min [facility] BP Systolic 2018-06-16 14:03:00 113 mm[Hg] Location: RUE; Positi on: Sitting [facility] BP Diastolic 2018-06-16 14:03:00 77 mm[Hg] Location: RUE; Positi on: Sitting [facility] Height 2018-06-16 14:03:00 53 [in_us] [facility] Weight 2018-06-16 14:03:00 165 [lb_av] [facility] Body Mass Index Calculated 2018-06-16 14:03:00 41.3 kg/m2 [facility] Temperature 2018-06-16 14:03:00 96.3 [degF] Method: Oral [facility] Heart Rate 2018-06-16 14:03:00 85 /min [facility] Procedures Procedure Date / Time Performed Performing Clinician Rasheeda carranza DRAINAGE OF SKIN ABSCESS 2020-02-29 00:00:00 [facility] DRAINAGE OF SKIN ABSCESS 2020-01-31 00:00:00 [facility] ECHG EKG PROC 12 LEAD EKG; TRACING ONLY 2019-09-14 13:50:51 Fern Bynum ma [facility] GLUCOSE POC 2019-09-14 13:46:00 Unknown, Provider Matt Rodriguez [facility] BMP POC 2019-05-31 21:23:00 Rajiv Treviño [facility] BMP POC 2019-05-31 18:11:00 Unknown, Provider Matt Rodriguez [facility] CBC/DIFF 2019-05-31 18:04:00 Vanesa Cobos alth PT/INR/PTT 2019-05-31 18:04:00 Vanesa Cobos alth CBC 2019-05-31 18:04:00 Vanesa Cobos alth XRAY ANKLE 3 VIEW MIN 2019-05-31 17:57:[address] [facility] History of Incision & drainage 2018-06-08 00:00:00 [facility] [U] XRAY PELVIS MIN 3 [id number] [id number] 2018-01-28 00:00:00 [facility] History of Inferior vena cava filter placement [facility] History of Uterine artery embolization [facility] History of section [facility] History of Pelvic surgery [facility] Plan of Care Planned Activity Planned Date Details Comments Source Future Scheduled Test 2020-09-15 00:00:00 Screening for lei gnant neoplasm of cervix (procedure) [code = 767642817] [facility] Scheduled Test 2020-07-12 00:00:00 IMM Influenza Seas onal Jul to December (>/= 19 yrs) [code = IMM Influenza Seasonal Jul to December (>/= 19 yrs)] [facility] Scheduled Test 2020-03-18 00:00:00 DM Foot Exam (Year ly) [code = DM Foot Exam (Yearly)] [facility] Scheduled Test 2020-03-11 00:00:00 Hemoglobin A1c ondina surement (procedure) [code = 23724616] [facility] Scheduled Test 2020-03-11 00:00:00 Urine screening fo r protein (procedure) [code = 345694499] [facility] Scheduled Test 2019 00:00:00 Screening for lei gnant neoplasm of colon (procedure) [code = 167345122] [facility] Scheduled Test 2011-05-22 00:00:00 Breast Cancer Scrn (Yearly) [code = Breast Cancer Scrn (Yearly)] [facility] Scheduled Test 1987 00:00:00 DM Retinal Exam (Y early) [code = DM Retinal Exam (Yearly)] [facility] Instructions Chest Pain - Chest Wall [facility] Instructions Costochondritis - Adult [facility] Encounters Start Date/Time End Date/Time Encounter Type Admission Type [facility] Care Department Encounter ID Source 2020-05-08 20:15:00 2020-05-08 23:44:00 Departed Emergency Room EVAN TOLBERT [facility] [id number] [facility] 2020-02-29 09:17:00 2020-02-29 10:28:00 Departed Emergency Room [facility] [id number] [facility] 2020-01-31 17:09:00 2020-01-31 19:24:00 Departed Emergency Room [facility] [id number] [facility] 2019-09-29 00:00:00 2019-09-29 00:00:00 Outpatient [facility] [id number] [facility] 2019-09-14 13:39:00 2019-09-14 13:39:00 Emergency [facility] [id number] [facility] 2019-05-31 19:41:14 2019-05-31 19:41:14 Emergency [facility] [id number] [facility] 2019-05-31 17:48:57 2019-05-31 17:48:57 Emergency [facility] [id number] [facility] 2018-07-07 10:15:00 2018-07-07 10:15:00 Appointment; JUNAID VINSON M.D. TRAHAN, MICHAEL, M.D. [facility] [id number] [facility] 2018-06-25 11:30:00 2018-06-25 11:30:00 Appointment; JUNAID VINSON M.D. TRAHAN, MICHAEL, M.D. [facility] [id number] [facility] 2018-06-16 13:30:00 2018-06-16 13:30:00 Appointment; JUNAID VINSON M.D. TRAHAN, MICHAEL, M.D. [facility] [id number] [facility] 2018-03-11 13:45:00 2018-03-11 13:45:00 Appointment; SUHAIL SANDERSON M.D. TINUBU, JIDE, M.D. [facility] [id number] [facility] 2018-02-11 13:45:00 2018-02-11 13:45:00 Appointment; SUHAIL SANDERSON M.D. TINUBU, JIDE, M.D. [facility] [id number] [facility] 2018-01-28 13:45:00 2018-01-28 13:45:00 Appointment; SUHAIL SANDERSON M.D. TINUBU, JIDE, M.D. [facility] [id number] [facility] 2017-12-17 10:45:00 2017-12-17 10:45:00 Appointment; SUHAIL SANDERSON M.D. TINUBU, JIDE, M.D. [facility] [id number] [facility] 2017-11-16 00:00:00 2017-11-16 00:00:00 Outpatient [facility] [id number] [facility] 2017-10-29 00:00:00 2017-10-29 00:00:00 Outpatient [facility] [id number] [facility] 2017-10-29 00:00:00 2017-10-29 00:00:00 Outpatient [facility] [id number] [facility] 2017-09-16 00:00:00 2017-09-16 00:00:00 Outpatient [facility] [id number] [facility] 2017-09-15 10:58:37 2017-09-15 10:58:37 Outpatient [facility] [id number] [facility] 2017-09-15 10:08:27 2017-09-15 10:08:27 Outpatient [facility] [id number] [facility] 2017-09-15 08:42:26 2017-09-15 08:42:26 Outpatient [facility] [id number] [facility] 2017-08-19 00:00:00 2017-08-19 00:00:00 Outpatient [facility] [id number] [facility] 2017-08-18 10:29:47 2017-08-18 10:29:47 Outpatient [facility] [id number] [facility] 2017-08-18 09:49:31 2017-08-18 09:49:31 Outpatient [facility] [id number] [facility] 2017-07-23 00:00:25 2017-07-23 00:00:25 Emergency [facility] [id number] [facility] 2017-07-22 21:47:17 2017-07-22 21:47:17 Emergency [facility] [id number] [facility] 2017-07-11 16:10:48 2017-07-11 16:10:48 Outpatient [facility] [id number] [facility] 2017-06-24 07:53:06 2017-06-24 07:53:06 Emergency [facility] [id number] [facility] 2017-06-24 07:15:30 2017-06-24 07:15:30 Emergency [facility] [id number] [facility] Results Test Description Test Time Test Comments Results Result Comments Source Capillary blood glucose measurement by glucometer (mas s/volume) 2020-05-08 23:10:00 Test Item Bedside Glucose (test code = 84282-1) 306 70-120 Meter ID: [id number] or plasma creatine kinase measurement (enzymatic activity/volume)2020-05-08 22:50:00* Test Item Value Reference Range Interpretation Comments Creatine Kinase (test code = 2157-6) 49 29-168 [facility] creatine kinase MB measurement (mass/volume)2020-05-08 22:50:00* Test Item Value Reference Range Interpretation Comments Creatine Kinase MB (test code = 41341-8) 1.50 0-5.0 [facility] I measurement by highly sensitive enzyme [id number] 22:50:00* Test Item Value Reference Range Interpretation Comments Troponin I (test code = 74337-4) < 0.001 0-0.300 [facility]2020-05-08 22:08:00 [facility] [address] [address] Patient Name: DAISY DEE MR #: [id number] : 1970 Age/Sex: 49/F Req #: [id number] Adm Physician: Ordered by: EVAN TOLBERT MD Report #: [id number] Location: ER Room/Bed: Procedure: [id number] DX/CHEST S AAYUSH (PORTABLE) Exam Date: 05/08/20 Exam Time: 2101 REPORT STATUS: Signed EXAMINATI ON: CHEST SINGLE (PORTABLE) INDICATION: Chest pain COMPARISO N: None FINDINGS: TUBES and LINES: None. LUNGS: Low l judy volumes. Lungs are clear. No consolidations. PLEURA: No pleural effu tanisha or pneumothorax. HEART AND MEDIASTINUM: The cardiomediastinal silhoue tte is unremarkable. BONES AND SOFT TISSUES: No acute osseous lesion. Soft tissues are unremarkable. Healed right lateral clavicular fracture. Heal ed right rib fractures. Degenerative changes. UPPER ABDOMEN: No free air under the diaphragm. IMPRESSION: No acute thoracic radiographic a bnormality although lung evaluation is limited due to low lung volumes, subopt imal portable AP technique, and patient body habitus.. Signed by: Chacho Salinas DO on 05/08/2020 10:10 PM Dictated By: BRAYAN SALINAS DO El ectronically Signed By: BRAYAN SALINAS DO on 07/28/20 2210 Transcribed By: CO MTRAN on 05/08/202209 COPY TO: EVAN TOLBERT MD Blood leukocytes automated count (number/volume)2020-05-08 20:17:00* Test Item Value Reference Range Interpretation Comments White Blood Count (test code = 6690-2) 8.38 4.8-10.8 [facility] erythrocytes automated count (number/volume)2020-05-08 20:17:00* Test Item Value Reference Range Interpretation Comments Red Blood Count (test code = 789-8) 4.11 3.6-5.1 [facility] hemoglobin measurement (moles/volume)2020-05-08 20:17:00* Test Item Value Reference Range Interpretation Comments Hemoglobin (test code = 45649-2) 12.3 12.0-16.0 [facility] FallsAutomated blood hematocrit (volume fraction)2020-05-08 20:17:00* Test Item Value Reference Range Interpretation Comments Hematocrit (test code = 4544-3) 37.8 34.2-44.1 [facility] FallsAutomated erythrocyte mean corpuscular [id number] 20:17:00* Test Item Value Reference Range Interpretation Comments Mean Corpuscular Volume (test code = 787-2) 92.0 81-99 [facility] Falls[facility] erythrocyte mean corpuscular hemoglobin (mass per erythrocyte)2020-05-08 20:17:00* Test Item Value Reference Range Interpretation Comments Mean Corpuscular Hemoglobin (test code = 785-6) 29.9 28-32 [facility] Falls[facility] erythrocyte mean corpuscular hemoglobin concentration measurement (mass/volume)2020-05-08 20:17:00* Test Item Value Reference Range Interpretation Comments Mean Corpuscular Hemoglobin Concent (test code = 786-4) 32.5 31-35 [facility] FallsRDW [id number]-[id number] 20:17:00* Test Item Value Reference Range Interpretation Comments Red Cell Distribution Width (test code = 68462-5) 12.9 11.7 -14.4 [facility] Falls[facility] blood platelet count (count/volume)2020-05-08 20:17:00* Test Item Value Reference Range Interpretation Comments Platelet Count (test code = 777-3) 261 140-360 [facility] Falls[facility] blood segmented neutrophil count as percentage of total [id number] 20:17:00* Test Item Value Reference Range Interpretation Comments Neutrophils (%) (Auto) (test code = 72287-9) 62.3 38.7-80.0 [facility] Falls[facility] blood lymphocyte count as percentage ot total gbteevadsg7789-40-29 20:17:00* Test Item Value Reference Range Interpretation Comments Lymphocytes (%) (Auto) (test code = 736-9) 29.7 18.0-39.1 [facility] Falls[facility] blood monocyte count as percentage of total ecxenxpjfo9062-52-71 20:17:00* Test Item Value Reference Range Interpretation Comments Monocytes (%) (Auto) (test code = 5905-5) 5.3 4.4-11.3 [facility] Falls[facility] blood eosinophil count as percentage of total ofyxxykyeo3946-92-39 20:17:00* Test Item Value Reference Range Interpretation Comments Eosinophils (%) (Auto) (test code = 713-8) 1.9 0.0-6.0 [facility] Falls[facility] blood basophil count as percentage of total wgoetemmjr9570-23-63 20:17:00* Test Item Value Reference Range Interpretation Comments Basophils (%) (Auto) (test code = 706-2) 0.6 0.0-1.0 [facility] FallsFluoroscopic procedure less than one hour [id number] 20:17:00* Test Item Value Reference Range Interpretation Comments IM GRANULOCYTES % (test code = IM GRANULOCYTES %) 0.2 0.0- 1.0 [facility] Falls[facility] blood neutrophil count 2020-05-08 20:17:00* Test Item Value Reference Range Interpretation Comments Neutrophils # (Auto) (test code = 751-8) 5.2 2.1-6.9 [facility] lymphocytes count (number/volume) 2020-05-08 20:17:00* Test Item Value Reference Range Interpretation Comments Lymphocytes # (Auto) (test code = 30427-1) 2.5 1.0-3.2 [facility] Falls[facility] monocytes automated count (number/volume)2020-05-08 20:17:00* Test Item Value Reference Range Interpretation Comments Monocytes # (Auto) (test code = 742-7) 0.4 0.2-0.8 [facility] FallsAutom[facility] blood eosinophil count 2020-05-08 20:17:00* Test Item Value Reference Range Interpretation Comments Eosinophils # (Auto) (test code = 711-2) 0.2 0.0-0.4 [facility] FallsAutomated blood basophil count (count/volume)2020-05-08 20:17:00* Test Item Value Reference Range Interpretation Comments Basophils # (Auto) (test code = 704-7) 0.1 0.0-0.1 [facility] FallsFluoroscopic procedure less than one hour [id number] 20:17:00* Test Item Value Reference Range Interpretation Comments Absolute Immature Granulocyte (auto (mauro t code = Absolute Immature Granulocyte (auto) 0.02 0-0.1 [facility] FallsFibrin D-dimer DDU measurement in platelet poor plasma (mass/volume)2020-05-08 20:17:00* Test Item Value Reference Range Interpretation Comments D-Dimer Quantitative (PE/DVT) (test code = 52349-8) 0.29 0. 00-0.45 As with all in vitro diagnostic tests, the test results should be interpreted by the physician in conjunction with clinical findings and other test results.Test results are reported in NEW D-dimer units(ug/mLFEU).[facility]viewerum or plasma sodium measurement (moles/volume)2020-05-08 20:17:00* Test Item Value Reference Range Interpretation Comments Sodium Level (test code = 2951-2) 139 136-145 [facility]viewerum or plasma potassium measurement (moles/volume)2020-05-08 20:17:00* Test Item Value Reference Range Interpretation Comments Potassium Level (test code = 2823-3) 3.9 3.5-5.1 [facility]viewerum or plasma chloride measurement (moles/volume)2020-05-08 20:17:00* Test Item Value Reference Range Interpretation Comments Chloride Level (test code = 2075-0) 103 98-107 [facility]viewerum or plasma carbon dioxide, total measurement (moles/volume)2020-05-08 20:17:00* Test Item Value Reference Range Interpretation Comments Carbon Dioxide Level (test code = 2028-9) 25 22-29 [facility]viewerum or plasma anion [id number] 20:17:00* Test Item Value Reference Range Interpretation Comments Anion Gap (test code = 49018-0) 14.9 8-16 [facility]viewerum or plasma urea nitrogen measurement (mass/volume)2020-05-08 20:17:00* Test Item Value Reference Range Interpretation Comments Blood Urea Nitrogen (test code = 3094-0) 16 7-26 [facility]viewerum or plasma creatinine measurement (mass/volume)2020-05-08 20:17:00* Test Item Value Reference Range Interpretation Comments Creatinine (test code = 2160-0) 0.98 0.57-1.11 [facility]viewerum or plasma urea nitrogen/creatinine mass [id number] 20:17:00* Test Item Value Reference Range Interpretation Comments BUN/Creatinine Ratio (test code = 3097-3) 16 6-25 [facility] FallsEstimated glomerular filtration rate (GFR) ymtmikraemggk3915-31-60 20:17:00* Test Item Value Reference Range Interpretation Comments Estimat Glomerular Filtration Rate (test code = 226124655) 60 >60 Ranges were taken from the National Kidney Disease Education Program and the [facility] literature.Reference ranges:60 or greater: Uvbkxt04-81 ( for 3 consecutive months): Chronic kidney disease 15 or less: Kidney failureBaylor Scott & [facility] FallsGlucose awlnkotbgtr3093-83-47 20:17:00* Test Item Value Reference Range Interpretation Comments Glucose Level (test code = UGT8899) 397 74-118 [facility]viewerum or plasma calcium measurement (mass/volume)2020-05-08 20:17:00* Test Item Value Reference Range Interpretation Comments Calcium Level (test code = 06948-4) 9.4 8.4-10.2 [facility]viewerum or plasma total bilirubin measurement (mass/volume)2020-05-08 20:17:00* Test Item Value Reference Range Interpretation Comments Total Bilirubin (test code = 1975-2) 0.2 0.2-1.2 [facility] FallsFluoroscopic procedure less than one hour [id number] 20:17:00* Test Item Value Reference Range Interpretation Comments Aspartate Amino Transf (AST/SGOT) (test code = Aspartate Amino Transf (AST/SGOT)) 18 5-34 [facility]viewerum or plasma alanine aminotransferase measurement (enzymatic activity/volume)2020-05-08 20:17:00* Test Item Value Reference Range Interpretation Comments Alanine Aminotransferase (ALT/SGPT) (test code = 1742-6) 20 0-55 [facility]viewerum or plasma protein measurement (mass/volume)2020-05-08 20:17:00* Test Item Value Reference Range Interpretation Comments Total Protein (test code = 2885-2) 7.4 6.5-8.1 [facility]viewerum or plasma albumin measurement (mass/volume)2020-05-08 20:17:00* Test Item Value Reference Range Interpretation Comments Albumin (test code = 1751-7) 3.2 3.5-5.0 [facility] FallsPlasma globulin measurement (mass/volume) 2020-05-08 20:17:00* Test Item Value Reference Range Interpretation Comments Globulin (test code = 13157-6) 4.2 2.3-3.5 [facility]viewerum or plasma albumin/globulin mass paamm7304-05-74 20:17:00* Test Item Value Reference Range Interpretation Comments Albumin/Globulin Ratio (test code = 1759-0) 0.8 0.8-2.0 [facility]viewerum or plasma alkaline phosphatase measurement (enzymatic activity/volume)2020-05-08 20:17:00* Test Item Value Reference Range Interpretation Comments Alkaline Phosphatase (test code = 6768-6) 93 40-150 [facility]12 LEAD [id number] 14:29:1812 LEAD EKG FOR [facility] Murali Cheek [facility] Test Date: [id number] Name: SLIME MUJICA Department: [id number] ID: [id number] Room: Gender: F [employer]ician: : 1970 Requested By: FERN Cruz Number: [id number] Reading MD: Evan DICKINSON MeasurementsIntervals Sterrett Rate: 75 P: 49PR: 164 QRS: 6QRSD: 91 T: 31QT: 381 QTc: 426 Interpretive StatementsSINUS RHYTHMLOW QRS VOLTAGE IN PRECORDIAL LEADSNONSPECIFIC T-WAVE ABN ORMALITYAbnormal ECGElectronically Signed On 09-14-2019 14:29:15 CARDIAC SONOGRAPHER by Evan Muhammad [facility] GLUCOSE POC docked [id number] 13:47:00* Test Item Value Reference Range Interpretation Comments Glucose POC (test code = 68025320) 320 mg/dL 74-106 H Lab Interpretation (test code = 83869-3) Abnormal [facility] BMP POC docked [id number] 21:27:00* Test Item Value Reference Range Interpretation Comments Sodium POC (test code = 92655400) 132 mmol/L 136-145 L Potassium POC (test code = 87463858) 4.8 mmol/L 3.5-5.1 Chloride POC (test code = 03226369) 98 mmol/L 98-107 TCO2 POC (test code = 91123413) 28 mmol/L 21-32 Urea Nitrogen POC (test code = 44527011) 25 mg/dL 7-18 H Creatinine POC (test code = 00051282) 1.2 mg/dL 0.6-1.3 Glucose POC (test code = 98545550) 335 mg/dL 74-106 H Ionized Calcium POC (test code = 51117144) 1.17 mmol/L 1.15-1.29 GFR, Estimated (test code = 40847813) 53 >=90 mL/min/1.73 m2 L Hemoglobin POC (test code = 77955910) 14.6 g/dL 12-16 Hematocrit POC (test code = 92758408) 43.0 % 37-47 Lab Interpretation (test code = 41805-2) [facility][id number] 19:00:00* Test Item Value Reference Range Interpretation Comments PT (test code = 5902-2) 12.2 11.8- 15.0 Seconds INR (test code = 11529734) 0.9 Refer to INR therapeutic ra nges 2.0 - 3.0 for moderate intensity anticoagulation2.5 - 3.5 for high intensity anticoagulation PTT (test code = 44653993) 27.2 23.6- 36.4 Seconds The recommended therapuetic range is an APTT 61-103 seconds which corresponds to 0.3-0.7 anti Xa u/ml. Lab Interpretation (test code = 31525-5) Normal [facility]CBC/[id number] 18:34:00* Test Item Value Reference Range Interpretation Comments WBC (test code = 6690-2) 9.1 K/uL 4.5-11 RBC (test code = 789-8) 4.23 4.20- 5.40 M/uL Hemoglobin (test code = 718-7) 12.6 g/dL 12-16 Hematocrit (test code = 4544-3) 39.5 % 37-47 MCV (test code = 787-2) 93.4 fL 82-92 H MCH (test code = 785-6) 29.8 pg 27-32 MCHC (test code = 786-4) 31.9 g/dL 32-36 L RDW (test code = 47524-6) 42.4 fL 36.4-46.3 Platelet (test code = 777-3) 277 K/uL 150-400 Mean Platelet Volume (test code = 83814-1) 9.5 fL 9.4-12.4 Percent NRBC (test code = 36158350) 0.0 % Neutrophil (test code = 770-8) 68.8 % 34-70 Lymphs (test code = 736-9) 23.3 % 20-50 Monocytes (test code = 5905-5) 4.8 % 5-12 L Eos (test code = 713-8) 2.1 % 0.7-5 Basos (test code = 706-2) 0.5 % 0.1-1.2 Immature Granulocytes (test code = 37987421) 0.5 % 0-0.5 Neutrophils (Absolute) (test code = 82841036) 6.26 K/uL 1.56-6.1 3 H Lymphs (Absolute) (test code = 14351340) 2.12 K/uL 1.18-3.74 Monocytes(Absolute) (test code = 40199178) 0.44 K/uL 0.24-0.36 H Eos (Absolute) (test code = 64257991) 0.19 K/uL 0.04-0.36 Baso (Absolute) (test code = 16820883) 0.05 K/uL 0.01-0.08 Immature Grans (Abs) (test code = 37320651) 0.05 K/uL 0-0.03 H Absolute NRBC (test code = 26210714) 0.00 K/uL Lab Interpretation (test code = 44893-8) Abnormal [facility] HospitalX[facility] VIEW [id number] 18:17:49IMPRESSION: 1. Diffuse soft tissue swelling of the ankle without underlying acuteosseous abnormality2. Diffuse osteopenia3. Calcaneal enthesophytes and mild intertarsal degenerative changes Signed By: George Berry MD, 05/31/2019 6:17 PM Interface, Rad/Mammog In - 05/31/2019 6:22 PM CDTEXAM: XR LEFT ANKLE 3 VIEWSDATE: 05/31/2019 5:57 PM INDICATION: L ankle painCOMPARISON: None availableTECHNIQUE: AP, lateral and oblique ankle radiographsFINDINGS: Diffuse osteopenia. No acute fracture or malalignment isidentified. The ankle mortise is congruent. Diffuse ankle softtissue swelling is present. Note made of calcaneal enthesophytes andmild intertarsal degenerative changes.IMPRESSIONIMPRESSION: 1. Diffuse soft tissue swelling of the ankle without underlying acuteosseous abnormality2. Diffuse osteopenia3. Calcaneal enthesophytes and mild intertarsal degenerative changesSigned By: George Berry MD, 05/31/2019 6:17 PMRapid City HealthTobacco Use Pgdgyppao2061-31-07 13:30:00* Test Item Value Reference Range Interpretation Comments Completed (test code = Completed) DONE [facility][U] XRAY PELVIS MIN 3 S [id number] 13:53:00 Images acquired, not reported on this accession number.[facility]
== END 2020-05-08 23:44 | disposition home or self-care (01) ==
LOC: ER 20:15
DX: M94.0 Chondrocostal junction syndrome [Tietze] (principal); E11.65 Type 2 diabetes mellitus with hyperglycemia
CPT/HCPCS: 36415; 71045; 80053; 82550; 82553; 82948; 84484; 85025; 85379; 93005; 99284; J1885